=== PATIENT | male | born 1995 | race Two or more races ===

== ENCOUNTER 2020-03-13 02:18 | Emergency (ER) | payer SELFPAY ==
[~2020-03-13] VITALS: Ht 180.3 cm; Wt 71.2 kg
[2020-03-13 04:20] VITALS: BP 151/75
== END 2020-03-13 05:44 | disposition home or self-care (01) ==
LOC: ER 02:20
DX: J02.9 Acute pharyngitis, unspecified (principal)
CPT/HCPCS: 70490; 87070; 87804; 87880